=== PATIENT | female | born 1965 | race Native Hawaiian/Other Pacific Islander ===

== ENCOUNTER 2019-02-07 13:59 | Emergency (ER) | payer OTHER ==
[~2019-02-07] VITALS: Ht 170.2 cm; Wt 80.7 kg
[2019-02-07 14:21] LABS: PLATELET COUNT 294 K/uL (152-353)
[2019-02-07 14:34] LABS: POTASSIUM 3.5 mmol/L (3.6-5.2)
[2019-02-07 15:23] VITALS: BP 173/70; TEMP 98
== END 2019-02-07 15:38 | disposition home or self-care (01) ==
LOC: ED 13:59
PROVIDERS: Hospitalist
DX: N20.0 Calculus of kidney (principal); R11.2 Nausea with vomiting, unspecified
CPT/HCPCS: 36415; 80053; 81000; 81025; 82150; 83690; 85027; 85610; 96360; 96375; 96376; 99284; J1170; J1885; J2270; J2405

== ENCOUNTER 2020-11-15 16:53 | Outpatient (CLI) | payer OTHER ==
[2020-11-15 17:34] LABS: PLATELET COUNT 265 K/uL (152-353)
[2020-11-15 17:52] LABS: POTASSIUM 3.8 mmol/L (3.6-5.2); SODIUM 143 mmol/L (136-145)
== END 2020-11-15 20:34 | disposition home or self-care (01) ==
LOC: RAD 16:53 → LABW 16:53
PROVIDERS: ATTEND Nurse Practitioner Family
DX: F41.1 Generalized anxiety disorder (principal)
CPT/HCPCS: 36415; 80048; 82550; 82553; 84484; 85027

== ENCOUNTER 2020-12-15 14:11 | Outpatient (CLI) | payer OTHER | END 2020-12-15 23:59 | disposition home or self-care (01) | LOC: MAMMO 14:11 | PROVIDERS: ATTEND Nurse Practitioner Family | DX: Z12.31 Encounter for screening mammogram for malignant neoplasm of breast (principal) ==